=== PATIENT | male | born 1955 | race Caucasian/White ===

== ENCOUNTER → 2017-02-24 | Outpatient (CLI) | payer BC ==
[2016-04-26 05:55] VITALS: BP 129/79
[~2017-02-24] MED LIST: Aspirin PO; LOSA1TAB17 PO; MELO-150 PO; METO25TA2 PO; OLME1TAB PO; OXYC-323 PO; TAMS0.4C97 PO
--- NOTE | 2017-02-24 15:41 | RAD ---
Exam: PA and lateral chest radiograph History: Cough for 10 days, wheezing and productive cough. Comparison: 01/16/2016. Findings: Cardiomediastinal silhouette is within normal limits for size. Bilateral lung murrieta are free of focal infiltrate. No pleural effusion is seen. There is elevation of left hemidiaphragm. Impression: No acute cardiopulmonary process.
== END | disposition home or self-care (01) ==
LOC: DXRADRC 15:30
PROVIDERS: ATTEND Nurse Practitioner Family
DX: R05 Cough (principal); R06.2 Wheezing
CPT/HCPCS: 71020

== ENCOUNTER → 2017-11-06 | Outpatient (CLI) | payer BC ==
[2016-04-26 05:55] VITALS: BP 129/79
[~2017-11-06] MED LIST changes: -LOSA1TAB17 PO; +LOSA1TAB22 PO; -MELO-150 PO; +MELO15TA23 PO; -OLME1TAB PO; +OLME1TAB21 PO
[2017-11-06 11:17] LABS: BASO # 0.1 x10^3/uL (0.0-0.2); BASO % 1 % (0-3); EOS # 0.1 x10^3/uL (0.0-0.7); EOS % 2 % (0-3); HEMATOCRIT 49.7 % (39.0-53.0); HEMOGLOBIN 16.7 g/dL (13.0-17.5); LYMPH % 27 % (24-48); MEAN CORPUSCULAR HEMOGLOBIN 30 pg (25-35); MEAN CORPUSCULAR HGB CONC 34 g/dL (31-37); MEAN CORPUSCULAR VOLUME 90 fL (79-100); MONO # 0.5 x10^3/uL (0.0-1.1); MONO % 7 % (0-9); NEUT # 4.7 x10^3uL (1.8-7.7); NEUT % 64 % (31-73); PLATELET COUNT 313 x10^3/uL (140-400); RED BLOOD COUNT 5.53 x10^6/uL (4.30-5.70); RED CELL DISTRIBUTION WIDTH 14.2 % (11.5-14.5); WHITE BLOOD COUNT 7.4 x10^3/uL (4.0-11.0)
[2017-11-06 11:36] LABS: ALBUMIN 3.7 g/dL (3.4-5.0); CALCIUM 9.4 mg/dL (8.5-10.1); CREATININE 1.1 mg/dL (0.7-1.3); DIRECT BILIRUBIN 0.1 mg/dL (0.0-0.2); GFR 67.8; POTASSIUM 3.8 mmol/L (3.5-5.1); TOTAL BILIRUBIN 0.4 mg/dL (0.2-1.0); TOTAL PROTEIN 7.7 g/dL (6.4-8.2)
[2017-11-06 12:10] LABS: BILIRUBIN,URINE NEG (NEG); CLARITY,URINE CLEAR; COLOR,URINE YELLOW; GLUCOSE,URINE NEG (NEG)
[2017-11-06 12:11] LABS: NITRITE,URINE NEG (NEG); UROBILINOGEN,URINE 0.2 mg/dL (0.2 mg/dL)
[2017-11-06 12:15] LABS: BACTERIA,URINE FEW /HPF (0-FEW); RBC,URINE OCC /HPF (0-2); WBC,URINE OCC /HPF (0-4)
[2017-11-06 12:22] LABS: SQUAMOUS EPITHELIAL CELL,UR FEW /LPF
[2017-11-06 12:23] LABS: GRANULAR CASTS,URINE OCC /HPF; HYALINE CASTS, URINE FEW /HPF
[2017-11-06 14:57] LABS: THYROID STIM HORMONE (TSH) 1.411 uIU/mL (0.358-3.740)
--- NOTE | 2017-11-06 15:36 | RAD ---
Indication: Low back pain. Technique: Lumbosacral spine series contains 4 images. No comparison is available. Findings: There is mild levocurvature centered at L1. There is endplate spurring greatest at T12-L1 and L1-L2. Facet hypertrophy is greatest at L4-L5 and L5-S1. There is no fracture or dislocation. Vertebral body height is maintained. Impression: Degenerative changes in the lumbar spine.
== END | disposition home or self-care (01) ==
LOC: LAB 10:07
PROVIDERS: ATTEND Nurse Practitioner Family
DX: Z00.01 Encounter for general adult medical examination with abnormal findings (principal); M47.896 Other spondylosis, lumbar region; R35.1 Nocturia; I10 Essential (primary) hypertension; R79.89 Other specified abnormal findings of blood chemistry; Z72.89 Other problems related to lifestyle
CPT/HCPCS: 36415; 72100; 80048; 80061; 80076; 81001; 84436; 84443; 85025; G0103

== ENCOUNTER → 2017-11-13 | Outpatient (CLI) | payer BC ==
[2016-04-26 05:55] VITALS: BP 129/79
--- NOTE | 2017-11-13 10:25 | RAD ---
Indication: Lump in the posterior right neck. Sonographic interrogation of the area of lump in the posterior right neck was performed. Correlation is made with prior ultrasound from 04/13/2015. Previously noted mass in the posterior right neck persists measuring 4.1 x 6.4 x 1.9 cm compared with 2.9 x 5.6 x 1.9 cm. No internal vascularity is identified. A second mass is located just superior to this mass measuring 1.6 x 4.0 x 0.7 cm. No internal vascularity is seen. No fluid collection is identified. Impression: There are 2 masses identified in the posterior right neck, largest was previously seen and has increased in size. These could potentially represent lipomas. However, additional imaging with CT or MRI is recommended for better characterization.
== END | disposition home or self-care (01) ==
LOC: US 08:47
PROVIDERS: ATTEND Nurse Practitioner Family
DX: R22.1 Localized swelling, mass and lump, neck (principal); I10 Essential (primary) hypertension
CPT/HCPCS: 76536

== ENCOUNTER → 2019-04-30 | Outpatient (CLI) | payer BC ==
[2016-04-26 05:55] VITALS: BP 129/79
[~2019-04-30] MED LIST changes: -OXYC-323 PO; +OXYC1TAB15 PO
--- NOTE | 2019-04-30 16:19 | RAD ---
CHEST PA LATERAL History: Productive cough x2. COMPARISON: February 24, 2017. FINDINGS: Elevation of the left diaphragm and lung base appears similar to prior study. There is some markings in the left lung base which appears stable, compatible with atelectasis or fibrosis. No evidence of pneumothorax. No evidence of pleural effusion. No consolidation. Cardiomediastinal silhouette appears stable and not enlarged. IMPRESSION: Stable left lung base elevation with atelectasis or fibrosis. No new consolidation is seen. Electronically signed by: Alvaro Wakefield MD (04/30/2019 4:16 PM) [id number]
== END | disposition home or self-care (01) ==
LOC: PMG 10:19
PROVIDERS: ATTEND Physician Assistant
DX: R05 Cough (principal)
CPT/HCPCS: 71046

== ENCOUNTER → 2020-09-01 | Outpatient (CLI) | payer MEDICARE ==
[2016-04-26 05:55] VITALS: BP 129/79
--- NOTE | 2020-09-01 09:02 | RAD ---
Examination: Ultrasound right upper forearm HISTORY: History of right upper forearm lump COMPARISON: None available Findings/ impression: Ultrasound of the right upper forearm at the site of lump demonstrates a 1.4 x 1.9 x 0.6 cm heterogeneous echogenicity identified in the soft tissue of the forearm without significant vascular flow within. There is mild soft tissue edema identified about the mass. Recommend MRI without and with contrast for further evaluation. Electronically signed by: Hima Langford MD (09/01/2020 8:59 AM) [id number]
== END ==
LOC: US 08:28
PROVIDERS: ATTEND Physician Assistant
DX: R22.31 Localized swelling, mass and lump, right upper limb (principal)
CPT/HCPCS: 76881

== ENCOUNTER → 2020-09-22 | Outpatient (CLI) | payer MEDICARE ==
[2016-04-26 05:55] VITALS: BP 129/79
== END ==
LOC: LAB 08:22
PROVIDERS: ATTEND Nurse Anesthetist, Certified Registered
DX: Z01.812 Encounter for preprocedural laboratory examination (principal); Z20.828 Contact with and (suspected) exposure to other viral communicable diseases
CPT/HCPCS: U0003

== ENCOUNTER → 2020-09-26 | Day surgery (SDC) | payer MEDICARE ==
[~2020-09-26] MED LIST changes: +BUPIVACAINE-EPI 0.25%-1:200000 MPF 30 ML VIAL. IJ ONE; +BUPIVACAINE-EPI 0.25%-1:200000 MPF 30 ML VIAL. ONE
--- NOTE | 2020-09-26 12:44 | PDOC4 ---
Operative Report DATE 09/26/2020 at 1242 Preop Diagnosis Right forearm mass Post-op Diagnosis Same Operation Performed Patient is a 65-year-old male complains of a mass on his right forearm procedure of excision was explained to the patient detail was benefits were also discussed including bleeding infection alternatives to this procedure also discussed with the patient who seemed to understand and gave both verbal and written consent to have the procedure performed. Patient was taken to the minors room placed in the supine position the arm was prepped and draped usual sterile fashion using ChloraPrep. Area around the mass was injected with quarter percent Marcaine with epinephrine incision was made with 15 blade scalpel through the skin this was carried down through the subcutaneous tissue using electrocautery right hemostasis mass was sharply excised with Metzenbaum scissors and sent for pathology mass size was approximately 1 x 2 cm. The wound was then closed in a single layer 4-0 subcuticular Monocryl Mastisol Steri-Strips and island dressing were applied. Patient was discharged in stable condition all sponge instrument needle counts listed as correct estimated blood loss 5 mL Surgeon Juan Jose ANESTHESIA PROPOSED: LOCAL Blood Loss 5 mL Specimen Right forearm mass Complications None EFREN LAMAS MD Sep 26, 2020 12:44
--- NOTE | 2020-09-26 12:46 | DISCH ---
DISCHARGE INSTRUCTIONS-DC Condition on Discharge Condition on Discharge: Stable Activity after Discharge Activity Instructions for Disc: Resume previous activity Diet after Discharge Diet after Discharge: Regular Wound/Incision Care Other wound/incision instructi: May shower in 24 hours Contacting the after DC Call your doctor for: If your condition worsens Follow-Up Follow up with: Dr. Lamas in 2-week EFREN LAMAS MD Sep 26, 2020 12:46
[2020-09-26 12:59] VITALS: BP 130/66
--- NOTE | 2020-09-29 22:06 | PATHOLOGY ---
[facility] Accession Number: [id number] . 01 Material submitted: . forearm - RIGHT FOREARM MASS. Modifiers: right . 02 Diagnosis: "Right forearm mass", excision: - Fibroadipose connective tissue with localized fat necrosis showing adjacent acute and chronic inflammation, coagulative necrosis, fibroblastic proliferation and reactive changes. LBQ 09/29/2020 1533 Local . 02 Comment: Clinical correlation is recommended. (CLW/db; 09/29/2020) . 02 Electronically signed: . Dary Cruz MD, Pathologist NPI- [id number] . 01 Gross description: . Received in formalin labeled "Tereso Khan, right forearm mass" is a henning-white soft tissue mass measuring 1.7 x 1.5 x 0.8 cm. The external surface is inked black and the specimen is sectioned to reveal a henning-white cystic cut surface. The specimen is submitted entirely in cassette A1. ([facility]; 09/28/2020) [facility] 09/28/2020 1606 Local . 02 Pathologist provided ICD-10: R22.31 . 02 CPT . 052409 Specimen Comment: A courtesy copy of this report has been sent to [phone], [phone] Specimen Comment: [id number] Specimen Comment: Report sent to / DR BAIG Performed at: 01 [facility] [address], [place] [id number] MD Hilton Smith MD Phone: [phone] Performed at: 02 [facility] [address], [place] [id number] MD James Haile MD Phone: [phone]
== END | disposition home or self-care (01) ==
LOC: SURG 10:59
PROVIDERS: ATTEND Surgery
DX: R22.31 Localized swelling, mass and lump, right upper limb (principal); M79.89 Other specified soft tissue disorders; I20.0 Unstable angina; I10 Essential (primary) hypertension; E66.01 Morbid (severe) obesity due to excess calories; M47.896 Other spondylosis, lumbar region; Z82.3 Family history of stroke; Z79.899 Other long term (current) drug therapy; Z82.49 Family history of ischemic heart disease and other diseases of the circulatory system; Z96.643 Presence of artificial hip joint, bilateral
CPT/HCPCS: 25075; J3490

== ENCOUNTER 2020-11-23 16:57 | Emergency (ER) | payer MEDICARE ==
[~2020-11-23] VITALS: Ht 177.8 cm; Wt 159.0 kg
[~2020-11-23 16:57] MED LIST changes: -BUPIVACAINE-EPI 0.25%-1:200000 MPF 30 ML VIAL. IJ ONE; -BUPIVACAINE-EPI 0.25%-1:200000 MPF 30 ML VIAL. ONE
[2020-11-23 17:18] VITALS: BP 168/89
[2020-11-23] MEDS ORDERED: AZITHROMYCIN 250 MG TABLET. PO ONE (18:30)
[2020-11-23] MEDS ORDERED: AZIT250T6 PO (18:50)
--- NOTE | 2020-11-23 18:50 | PHYS DOC ---
Past History Past Medical History: Hypertension Past Surgical History: Hip Replacement, Other Additional Past Surgical Histo: HAND, ELBOW Alcohol Use: Occasionally Drug Use: None Adult General Chief Complaint Chief Complaint: COUGH HPI HPI Patient is a 65-year-old male who presents stating "I was sent here for an x-ray ". States he is otherwise healthy male with hypertension only, reports having nonspecific URI-like symptoms such as facial congestion, rhinorrhea and postnasal drip for approximately 8 days. States that he went to local urgent care with his earlier today and they both tested positive for COVID-19. He was told that he had concerning breath sounds and was advised to come to our ER for chest x-ray to be performed. Patient denies any fever. States despite his symptoms, he traveled to [place] and spent [place] with his daughter and daughter's family, reports he drove home yesterday. Denies any fever, headache, syncope, lightheadedness or dizziness, chest pain, shortness of breath, productive cough, abdominal pain, vomiting, urinary symptoms or neurologic deficits. Just admits that he has had increased nasal drainage and development of looser stools than usual today which concerned him prompting urgent care visit. Review of Systems Review of Systems Fourteen body systems of review of systems have been reviewed. See HPI for pertinent positives and negative responses, other moreira all other systems are negative, non-pertinent or non-contributory Current Medications Current Medications Current Medications Medications (Trade) Dose Ordered Sig/Oksana Start Time Stop Time Status Last Admin Dose Admin Azithromycin (Zithromax) 500 mg 1X ONCE 11/23/20 18:30 11/23/20 18:31 DC Allergies Allergies Allergies Coded Allergies Type Severity Reaction Last Updated Verified No Known Drug Allergies 11/10/14 No Physical Exam Physical Exam Constitutional: Well developed, well nourished, no acute distress, non-toxic appearance. HENT: Normocephalic, atraumatic, bilateral external ears normal, oropharynx moist, no oral exudates, nose normal. Eyes: PERRLA, EOMI, conjunctiva normal, no discharge. Neck: Normal range of motion, no tenderness, supple, no stridor. Cardiovascular: Heart rate regular, sinus rhythm, no murmurs rubs or gallops Lungs & Thorax: No respiratory distress or accessory muscle usage, decreased breath sounds bilaterally due to body habitus without any obvious crackles, rales or rhonchi Abdomen: Bowel sounds normal, soft, no tenderness, no masses, no pulsatile masses. Nonsurgical abdomen, no peritoneal signs Skin: Warm, dry, no erythema, no rash. Back: No tenderness, no CVA tenderness. Extremities: No tenderness, no cyanosis, no clubbing, ROM intact, no edema. Neurologic: Alert and oriented X 3, grossly normal motor & sensory function, no focal deficits noted. Psychologic: Affect normal, judgement normal, mood normal. Current Patient Data Vital Signs Vital Signs Date Time Temp Pulse Resp B/P (MAP) Pulse Ox O2 Delivery O2 Flow Rate FiO2 11/23/20 17:18 99.6 97 18 168/89 (115) 91 Room Air EKG EKG [] Radiology/Procedures Radiology/Procedures [] Heart Score HEART Score for Chest Pain: HEART Score for Chest Pain Response (Comments) Value History Slighlty/Non-Suspicious 0 Age > 65 2 Risk Factors 1 or 2 Risk Factors 1 Total 3 Risk Factors: Risk Factors: DM, Current or recent (<one month) smoker, HTN, HLP, family history of CAD, obesity. Risk Scores: Risk Factors: DM, Current or recent (<one month) smoker, HTN, HLP, family history of CAD, obesity. Course & Med Decision Making Course & Med Decision Making I discussed most likely diagnosis of symptomatic COVID-19 infection. Patient's physical exam was grossly nonconcerning. Patient hemodynamically stable, patient did not desaturate with ambulation despite lower than likely usual pulse oximetry readings. I discussed utility of further diagnostic work-up in ER but joint decision to defer given absence of any concerning physical exam abnormalities and fact that management would not change. I did offer patient azithromycin for his current infection given URI-like symptoms and known COVID- 19 infection, he accepted. He took 500 mg tablet prior to discharge and tolerated this well. I discussed at length need to self quarantine and provide continued supportive care for himself at home, I advised Tylenol and/or ibuprofen for aches and pains in addition to need for taking daily temperature and pulse oximetry readings. I advised him to call his primary care physician tomorrow to discuss next steps in care and when he can be safely seen for repeat examination. I discussed that some primary care physicians like being notified of Covid positive patients so they can check on them daily via telehealth visits. Strict return precautions were also discussed at length with good under standing by patient. Patient voiced understanding and agreement with the plan. Patient knows to come back for repeat evaluation if concerning signs or symptoms present prior to outpatient follow-up. Hemodynamically stable, ambulatory and well-appearing at time of disposition. Dragon Disclaimer Dragon Disclaimer This electronic medical record was generated, in whole or in part, using a voice recognition dictation system. Departure Departure: Impression: Primary Impression: COVID-19 Disposition: 01 DC HOME SELF CARE/HOMELESS Condition: STABLE Referrals: MALATHI BAIG (PCP) Additional Instructions: You were seen for known COVID-19 infection. Your physical exam was reassuring. Your breath sounds were nonconcerning, joint decision was made to defer chest x-ray imaging given that you were well-appearing and hemodynamically stable. Joint decision was made to start azithromycin antibiotic. Continue to self quarantine at home. Alternate Tylenol and ibuprofen as needed for body aches and pain. You should make sure to drink plenty of fluids and get plenty of rest. As discussed, please continue to check your temperature daily and notify your primary care physician if you exceed temperatures greater than 100.4. In addition, I would advise you to hop picker a finger pulse oximetry ureter and use this daily. Please keep a log of these readings and contact your primary care physician and/or come to your local ER department for repeat evaluation if any readings drop less than 90%. You should return to the ED if you develop worsening cough, shortness of breath, chest pain, or any other new or concerning symptoms. It was a pleasure to take care of you today and I wish you a speedy recovery Scripts Azithromycin (AZITHROMYCIN TABLET) 250 Mg Tablet 250 MG PO DAILY for ANTI-BIOTIC for 4 Days, #4 TAB 0 Refills Prov: MOHIT BEASLEY DO 11/23/20 MOHIT BEASLEY DO Nov 23, 2020 18:50
== END 2020-11-23 19:00 | disposition home or self-care (01) ==
LOC: ER 16:57
DX: U07.1 COVID-19 (principal); R09.81 Nasal congestion; J34.89 Other specified disorders of nose and nasal sinuses; I10 Essential (primary) hypertension; Z98.890 Other specified postprocedural states
CPT/HCPCS: 99283

== ENCOUNTER 2020-11-25 20:13 | Inpatient (IN) | payer MEDICARE ==
[~2020-11-25] VITALS: Ht 177.8 cm; Wt 158.6 kg
[~2020-11-25 20:13] MED LIST changes: +AZIT250T6 PO
[2020-11-25] MEDS ORDERED: IV NORMAL SALINE 1,000ML 1,000 ML IV SCH (20:45)
--- NOTE | 2020-11-25 20:50 | PHYS DOC ---
Past History Past Medical History: Hypertension Past Surgical History: Hip Replacement, Other Additional Past Surgical Histo: HAND, ELBOW Alcohol Use: Occasionally Drug Use: None Adult General Chief Complaint Chief Complaint: FEVER HPI HPI Patient is a 65-year-old male presenting for COVID-19 infection. Patient was seen at our facility 2 days ago by myself after visiting local urgent care and testing positive for COVID-19 infection. He was sent for evaluation at our ER at that time, was hemodynamically stable and besides URI like symptoms had no other major complaints. Joint decision was made for discharge home with azithromycin prescription and strict return precautions. Patient reports since discharge home, he and his who is also positive have been providing supportive care to each other. Patient reports he has been having worsened URI- like symptoms such as rhinorrhea and congestion with new onset dizziness with position changes, nausea, GI upset and a few episodes of diarrhea that were nonbloody in nature. Patient reports being febrile earlier today with a temperature T-max 102.0 that resolved with Tylenol; however, patient reports the fever came back later in the afternoon which concerned him. Recurrence of fever and progressing symptoms prompted him to come back to our ER for repeat evaluation Review of Systems Review of Systems Fourteen body systems of review of systems have been reviewed. See HPI for pertinent positives and negative responses, other moreira all other systems are negative, non-pertinent or non-contributory Allergies Allergies Allergies Coded Allergies Type Severity Reaction Last Updated Verified No Known Drug Allergies 11/10/14 No Physical Exam Physical Exam Constitutional: Well developed, well nourished, no acute distress, non-toxic appearance, morbidly obese and ambulatory, does appear unwell HENT: Normocephalic, atraumatic, bilateral external ears normal, oropharynx dry, no oral exudates, nose normal. Eyes: PERRLA, EOMI, conjunctiva normal, no discharge. Neck: Normal range of motion, no tenderness, supple, no stridor. Cardiovascular: Heart rate regular, sinus rhythm, no murmurs rubs or gallops Lungs & Thorax: No obvious respiratory distress or accessory muscle use, increased work of breathing in tachypneic with O2 saturations upper 80s on room air, diminished breath sounds bilaterally due to body habitus without any obvious rales or rhonchi Abdomen: Bowel sounds normal, protuberant and soft, no tenderness, no masses, no pulsatile masses. Nonsurgical abdomen, no peritoneal signs Skin: Warm, dry, no erythema, no rash. Back: No tenderness, no CVA tenderness. Extremities: No tenderness, no cyanosis, no clubbing, ROM intact, no edema. Neurologic: Alert and oriented X 3, grossly normal motor & sensory function, no focal deficits noted. Psychologic: Affect normal, judgement normal, mood normal. Current Patient Data Vital Signs Vital Signs Date Time Temp Pulse Resp B/P (MAP) Pulse Ox O2 Delivery O2 Flow Rate FiO2 11/25/20 20:30 102.1 74 24 143/77 (99) 89 Room Air Lab Results Laboratory Tests Test 11/25/20 20:50 White Blood Count 5.1 x10^3/uL Red Blood Count 5.17 x10^6/uL Hemoglobin 15.4 g/dL Hematocrit 46.6 % Mean Corpuscular Volume 90 fL Mean Corpuscular Hemoglobin 30 pg Mean Corpuscular Hemoglobin Concent 33 g/dL Red Cell Distribution Width 14.3 % Platelet Count 184 x10^3/uL Neutrophils (%) (Auto) 68 % Lymphocytes (%) (Auto) 23 % Monocytes (%) (Auto) 8 % Eosinophils (%) (Auto) 1 % Basophils (%) (Auto) 1 % Neutrophils # (Auto) 3.5 x10^3uL Lymphocytes # (Auto) 1.2 x10^3/uL Monocytes # (Auto) 0.4 x10^3/uL Eosinophils # (Auto) 0.0 x10^3/uL Basophils # (Auto) 0.0 x10^3/uL Sodium Level 143 mmol/L Potassium Level 3.5 mmol/L Chloride Level 103 mmol/L Carbon Dioxide Level 32 mmol/L Anion Gap 8 Blood Urea Nitrogen 17 mg/dL Creatinine 1.2 mg/dL Estimated GFR (Cockcroft-Gault) 60.8 BUN/Creatinine Ratio 14 Glucose Level 131 mg/dL Lactic Acid Level 1.5 mmol/L Calcium Level 8.0 mg/dL Total Bilirubin 0.2 mg/dL Aspartate Amino Transf (AST/SGOT) 31 U/L Alanine Aminotransferase (ALT/SGPT) 49 U/L Alkaline Phosphatase 57 U/L Creatine Kinase 94 U/L Troponin I Quantitative < 0.017 ng/mL RB-Bax-R-Type Natriuretic Peptide 28 pg/mL Total Protein 6.9 g/dL Albumin 3.0 g/dL Albumin/Globulin Ratio 0.8 Current Medications Medications (Trade) Dose Ordered Sig/Oksana Route PRN Reason Start Time Stop Time Status Last Admin Dose Admin Sodium Chloride 1,000 ml @ 100 mls/hr Q10H IV 11/25/20 20:45 11/26/20 06:44 Ibuprofen (Motrin) 600 mg 1X ONCE PO 11/25/20 22:00 11/25/20 22:01 Ibuprofen (Motrin) 600 mg STK-MED ONCE PO 11/25/20 21:37 11/25/20 21:38 DC EKG EKG EKG ordered and interpreted by myself at 2116 hrs. as sinus rhythm at 89 bpm, unremarkable intervals, no axis deviation, no acute ischemic findings, no STEMI Radiology/Procedures Radiology/Procedures EXAM: Chest, single view. HISTORY: Covid 19. COMPARISON: 04/30/2019 FINDINGS: A frontal view of the chest obtained. There is diffuse central predominant interstitial infiltrate. There are decreased lung volumes with associated vascular crowding and atelectasis. No pleural effusion or pneumothorax is seen. The heart is normal in size for portable technique. IMPRESSION: Diffuse central predominant interstitial infiltrate. Electronically signed by: Christiana Quezada MD (11/25/2020 9:26 PM) [facility] Heart Score HEART Score for Chest Pain: HEART Score for Chest Pain Response (Comments) Value History Slighlty/Non-Suspicious 0 ECG Normal 0 Age >45 - < 65 1 Risk Factors 1 or 2 Risk Factors 1 Troponin < Normal Limit 0 Total 2 Risk Factors: Risk Factors: DM, Current or recent (<one month) smoker, HTN, HLP, family history of CAD, obesity. Risk Scores: Risk Factors: DM, Current or recent (<one month) smoker, HTN, HLP, family history of CAD, obesity. Course & Med Decision Making Course & Med Decision Making Pertinent Labs and Imaging studies reviewed. (See chart for details) Patient febrile and hypoxic on room air. Patient is known COVID-19 positive after getting tested with rapid test at [facility] urgent care November 23, 2020. Patient has been taking azithromycin and providing supportive care to himself at home but has failed outpatient treatment. He will need hospital admission for further medical management for current infection Case discussed with on-call hospitalist, Dr. Reeder, who agreed need for admission and accepted patient under his care at [facility] Patient was updated on plan of care and was amenable for hospital admission. All questions and concerns addressed prior to ER transport to [facility] for admission Erick Disclaimer Dragon Disclaimer This electronic medical record was generated, in whole or in part, using a voice recognition dictation system. Departure Departure: Impression: Primary Impression: Acute hypoxemic respiratory failure due to COVID-19 Additional Impression: Fever due to COVID-19 Disposition: 09 ADMITTED INPT THIS HOSP Admitting Physician: Sarah Reeder Condition: STABLE Referrals: MALATHI BAIG (PCP) Problem Qualifiers MOHIT BEASLEY DO Nov 25, 2020 20:50
[2020-11-25 21:23] LABS: BASO % 1 % (0-3); EOS % 1 % (0-3); HEMATOCRIT 46.6 % (39.0-53.0); HEMOGLOBIN 15.4 g/dL (13.0-17.5); LYMPH # 1.2 x10^3/uL (1.0-4.8); LYMPH % 23 % (24-48); MEAN CORPUSCULAR HEMOGLOBIN 30 pg (25-35); MEAN CORPUSCULAR HGB CONC 33 g/dL (31-37); MEAN CORPUSCULAR VOLUME 90 fL (79-100); MONO # 0.4 x10^3/uL (0.0-1.1); MONO % 8 % (0-9); NEUT # 3.5 x10^3uL (1.8-7.7); NEUT % 68 % (31-73); PLATELET COUNT 184 x10^3/uL (140-400); RED BLOOD COUNT 5.17 x10^6/uL (4.30-5.70); RED CELL DISTRIBUTION WIDTH 14.3 % (11.5-14.5); WHITE BLOOD COUNT 5.1 x10^3/uL (4.0-11.0)
--- NOTE | 2020-11-25 21:27 | EKG ---
[address] [address] Test Date: 2020-11-25 Test Time: 21:08:00 Pat Name: HUMPHREY ZULETA Department: Room: Gender: M [employer]: : 1955 Requested By: MOIHT BEASLEY Order Number: [id number] Reading MD: Abner Lynch Measurements Intervals [place] Rate: 89 P: 31 [place]: 152 QRS: 33 QRSD: 88 T: 30 QT: 346 QTc: 422 Interpretive Statements SINUS RHYTHM NORMAL ECG Electronically Signed On 11-28-2020 13:54:20 PROGRAM DIRECTOR/TRAFFIC DIRECTOR by Abner Lynch
--- NOTE | 2020-11-25 21:28 | RAD ---
EXAM: Chest, single view. HISTORY: Covid 19. COMPARISON: 04/30/2019 FINDINGS: A frontal view of the chest obtained. There is diffuse central predominant interstitial inf iltrate. There are decreased lung volumes with associated vascular crowding and atelectasis. No pleur al effusion or pneumothorax is seen. The heart is normal in size for portable technique. IMPRESSION: Diffuse central predominant interstitial infiltrate. Electronically signed by: Christiana Quezada MD (11/25/2020 9:26 PM) [facility]
[2020-11-25 21:30] LABS: CREATININE 1.2 mg/dL (0.7-1.3); GFR 60.8; POTASSIUM 3.5 mmol/L (3.5-5.1)
[2020-11-25] MEDS ORDERED: IBUPROFEN 600 MG TABLET. PO ONE ×2 (21:37→22:00)
[2020-11-25 21:45] LABS: ALBUMIN/GLOBULIN RATIO 0.8 (1.0-1.7); TOTAL BILIRUBIN 0.2 mg/dL (0.2-1.0); TOTAL PROTEIN 6.9 g/dL (6.4-8.2)
[2020-11-25] MEDS ORDERED: NITROGLYCERIN SUBLINGUAL 0.4 MG BOTTLE OF 25. SL PRN (22:00)
[2020-11-25 22:29] LABS: BACTERIA,URINE 0 /HPF (0-FEW); BILIRUBIN,URINE NEG (NEG); CLARITY,URINE CLEAR; COLOR,URINE YELLOW; GLUCOSE,URINE NEG (NEG); NITRITE,URINE NEG (NEG); RBC,URINE RARE /HPF (0-2); UROBILINOGEN,URINE 0.2 mg/dL (0.2 mg/dL); WBC,URINE RARE /HPF (0-4)
[2020-11-26 00:18] VITALS: BP 152/64
--- NOTE | 2020-11-26 01:51 | NUR ---
The patient, HUMPHREY ZULETA, 65 y/o, M admitted by GUILLAUME FERRARO MD, to room 120, was given written information regarding hospital policies, unit procedures and contact persons. Valuables were checked and left with the patient. Medical history and medications were reviewed. Physical needs assessment. Patient oriented to room. Current conditions and pain level discussed. Will continue to monitor.
[2020-11-26] MEDS ORDERED: HYDR25TA10 PO (02:07)
[2020-11-26] MEDS ORDERED: LOSA100T14 PO (02:07)
[2020-11-26 06:16] VITALS: BP 179/72
[2020-11-26] MEDS: ACETAMINOPHEN 325 MG TABLET PO PRN ×2 (07:09→20:25)
[2020-11-26 11:24] VITALS: BP 153/65
[2020-11-26 14:10] VITALS: BP 92/68
--- NOTE | 2020-11-26 14:23 | HP ---
ADMIT DATE: 11/25/2020 HISTORY OF PRESENT ILLNESS: The patient is a 65-year-old male patient who came to the Emergency Room with a complaint that of having cough, worsening upper respiratory infection like symptoms such as rhinorrhea, congestion with new onset dizziness with position change, nausea, GI upset and a few episodes of diarrhea that were nonbloody in nature. He also reports being febrile earlier today with a temperature maximum of 102 that resolved with Tylenol. However, the patient reports that the fever came back later in the afternoon, which concerned him. Recurrence of fever and progressing symptoms prompted him to come back to [facility] Emergency Room. He apparently was seen in same Emergency Room 2 days ago after visiting local urgent care and testing positive for COVID-19 infection. At that time, he apparently was afebrile, hemodynamically stable and was sent home with azithromycin prescription and strict return precautions. Apparently, he and his are both positive and has been providing supportive care to each other. When he arrived to the Emergency Room, the patient was extensively investigated and apparently has had chest x-ray, which showed the patient has diffuse central predominance interstitial infiltrate. His lab work showed a white cell count of 5000. His platelets were normal at 184,000. His chemistry was normal. Urinalysis was unremarkable and the patient was admitted with: 1. COVID-19 pneumonia. 2. Acute hypoxic respiratory failure. PAST MEDICAL HISTORY: Significant for hypertension. PAST SURGICAL HISTORY: Significant for bilateral total hip arthroplasty, biceps tendon rupture and repair, benign tumor removed from the outer aspect of the right elbow. ALLERGIES: He has no known drug allergies. MEDICATIONS: He is currently on losartan potassium 100 mg once a day, meloxicam 15 mg daily, hydrochlorothiazide 25 mg daily. FAMILY HISTORY: He has one brother and one sister, both older and healthy. His father at the age of 85 because of dementia, myocardial infarction. Mother at the age of 63 because of stroke. SOCIAL HISTORY: He is , has 2 sons and 1 daughter. 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 REVIEW OF SYSTEMS: The patient denied any blurring of vision, cataract, glaucoma or macular degeneration. Denied any earache, tinnitus or sensorineural deafness. Denied any nosebleeds, did complain of rhinorrhea, some nausea and also diarrhea, but denied any hematemesis, melena or hematochezia. Denied any dysuria, frequency or hematuria. Denied any chest pain, shortness of breath, orthopnea, paroxysmal nocturnal dyspnea. PHYSICAL EXAMINATION: GENERAL: On arrival to the Emergency Room, the patient was somewhat tachypneic, febrile. There is no pallor, jaundice, cyanosis or thyromegaly. No jugular venous distention. No limb edema. VITAL SIGNS: His heart rate was 74, blood pressure was 143/77, temperature was 102.3, respiratory rate was 24, and oxygen saturation was only 89%. HEAD, EYES, EARS, NOSE AND THROAT: Normocephalic, atraumatic. NECK: Supple. HEART: Normal first and second heart sounds. No gallop or murmur. CHEST: Shows central trachea, equal bilateral chest expansion, air entry, vesicular sounds. I could not really appreciate any crepitation or rhonchi. ABDOMEN: Distended, soft, nontender. No guarding or rigidity. No organomegaly. All hernial orifice intact. Bowel sounds normal. NEUROLOGIC: He was grossly intact. LABORATORY DATA: Showed a white cell count of 5100, hemoglobin 15, hematocrit 46, MCV 90 and platelet count of 184,000. Serum sodium was 143, potassium 3.5, chloride 103, bicarbonate 32, anion gap of 8, BUN 17, creatinine 1.2, estimated GFR was 60 mL per minute. His glucose was 131, lactic acid was 1.5, calcium was 8. Total bilirubin, AST, ALT, alkaline phosphatase were normal. Total protein was 6.9, albumin 3. Urinalysis was essentially unremarkable. His chest x-ray showed that he has diffuse central predominance, additional infiltrate. There are decreased lung volumes with associated vascular crowding and atelectasis, no pleural effusion or pneumothorax. The heart is normal in size for portable technique. ASSESSMENT AND PLAN: 1. The patient was admitted with COVID-19 pneumonia. 2. Acute hypoxic respiratory failure. 3. Hypertension. The patient was treated. We will continue with Zithromax as well as Rocephin and dexamethasone. I will resume all his home medications. GUILLAUME FERRARO MD DR: ANJALI/winnie JOB#: [id number] / [id number]
[2020-11-26] MEDS: LOSARTAN 50 MG TABLET. PO SCH (14:29)
[2020-11-26] MEDS: AZITHROMYCIN 250 MG TABLET. PO SCH (14:29)
[2020-11-26] MEDS: hydroCHLOROthiazide 25 MG TABLET PO SCH (14:29)
[2020-11-26 14:30] VITALS: BP 158/65
[2020-11-26] MEDS: DEXAMETHASONE SOD PHOS 10 MG/ML VIAL. IV SCH (14:30)
[2020-11-26 20:06] VITALS: BP 132/67
[2020-11-26] MEDS: ENOXAPARIN ** NOTE DOSE ** SYRINGE SQ SCH (20:25)
[2020-11-27 05:39] VITALS: BP 122/62
[2020-11-27 06:32] LABS: HEMATOCRIT 48.2 % (39.0-53.0); HEMOGLOBIN 15.9 g/dL (13.0-17.5); RED BLOOD COUNT 5.31 x10^6/uL (4.30-5.70); RED CELL DISTRIBUTION WIDTH 14.1 % (11.5-14.5)
[2020-11-27 06:54] LABS: ALBUMIN 2.8 g/dL (3.4-5.0); ALBUMIN/GLOBULIN RATIO 0.7 (1.0-1.7); CALCIUM 8.4 mg/dL (8.5-10.1); CREATININE 0.8 mg/dL (0.7-1.3); POTASSIUM 3.7 mmol/L (3.5-5.1); TOTAL BILIRUBIN 0.2 mg/dL (0.2-1.0); TOTAL PROTEIN 7.1 g/dL (6.4-8.2)
[2020-11-27] MEDS: ENOXAPARIN ** NOTE DOSE ** SYRINGE SQ SCH ×2 (08:17→20:27)
[2020-11-27] MEDS: hydroCHLOROthiazide 25 MG TABLET PO SCH (08:18)
[2020-11-27] MEDS: DEXAMETHASONE SOD PHOS 10 MG/ML VIAL. IV SCH (08:18)
[2020-11-27] MEDS: LOSARTAN 50 MG TABLET. PO SCH (08:18)
[2020-11-27] MEDS: AZITHROMYCIN 250 MG TABLET. PO SCH (08:18)
[2020-11-27] MEDS ORDERED: BENZOCAINE/MENTHOL LOZNGE 18'S BOX. PO PRN (09:45)
[2020-11-27 11:21] VITALS: BP 136/72
[2020-11-27 14:21] VITALS: BP 143/72
[2020-11-27 19:15] VITALS: BP 124/75
--- NOTE | 2020-11-27 19:39 | PN ---
DATE: 11/27/2020 SUBJECTIVE: The patient is resting, slightly propped up in bed, in no apparent distress. He continued to have some cough with scanty whitish sputum and some shortness of breath, but denied any chills, rigors or fever. PHYSICAL EXAMINATION: GENERAL: When I examined him, he looked well and was clearly in no apparent respiratory distress. No pallor, jaundice, cyanosis or thyromegaly. No jugular venous distention. No lower limb edema. VITAL SIGNS: His heart rate was 80, blood pressure was 143/72, temperature was 98.1, respiratory rate was 20, and oxygen saturation was 93% on 2 liters of oxygen. He desaturates quickly without any on room air and on exertion. HEAD, EYES, EARS, NOSE AND THROAT: Showed normocephalic, atraumatic. NECK: Supple. HEART: Showed normal first and second heart sounds. No gallop or murmur. CHEST: Clear to auscultation. No crepitation or rhonchi. ABDOMEN: Distended, soft, nontender. NEUROLOGIC: He is awake, alert, responding appropriately. All cranial nerves are intact. He moves extremities without difficulty. He ambulates without assistance or assistive devices. His intake and output were incompletely recorded. LABORATORY DATA: His lab work this morning showed a white cell count of 4000; hemoglobin 15.9; hematocrit 48; MCV 91; and platelet count of 184,000. Serum sodium 140, potassium 3.7, chloride 103, bicarbonate 30, anion gap of 7, BUN 14, creatinine 0.8. Estimated GFR was 97 mL per minute. His glucose 128, calcium was 8.4. Total bilirubin, AST, ALT, alkaline phosphatase were normal. Total protein 7.1, albumin was 2.8. D-dimer was high at 1.88. ASSESSMENT: 1. COVID-19 pneumonia. 2. Acute hypoxic respiratory failure. 3. Hypertension. PLAN: To continue with IV dexamethasone. Continue with IV Rocephin and Zithromax. Continue with all his other medications. We will evaluate him again tomorrow and if he remains stable, he can be discharged home to continue treatment as an outpatient and we will do also a 6-minute walk for home oxygen. GUILLAUME FERRARO MD DR: ANJALI/winnie JOB#: [id number] / [id number]
[2020-11-27] MEDS: LACTOBACILLUS RHAMNOSUS GG 1 CAPSULE. PO SCH (20:26)
[2020-11-27] MEDS: ACETAMINOPHEN 325 MG TABLET PO PRN (20:27)
[2020-11-27 23:20] VITALS: BP 129/64
[2020-11-28 05:41] VITALS: BP 141/75
[2020-11-28 06:24] LABS: HEMATOCRIT 46.4 % (39.0-53.0); HEMOGLOBIN 15.3 g/dL (13.0-17.5); RED BLOOD COUNT 5.19 x10^6/uL (4.30-5.70); RED CELL DISTRIBUTION WIDTH 13.9 % (11.5-14.5); WHITE BLOOD COUNT 6.2 x10^3/uL (4.0-11.0)
[2020-11-28 06:45] LABS: ALBUMIN 2.8 g/dL (3.4-5.0); ALBUMIN/GLOBULIN RATIO 0.7 (1.0-1.7); CALCIUM 8.4 mg/dL (8.5-10.1); CREATININE 0.8 mg/dL (0.7-1.3); POTASSIUM 3.3 mmol/L (3.5-5.1); TOTAL BILIRUBIN 0.3 mg/dL (0.2-1.0); TOTAL PROTEIN 6.9 g/dL (6.4-8.2)
[2020-11-28] MEDS: ENOXAPARIN ** NOTE DOSE ** SYRINGE SQ SCH (08:34)
[2020-11-28] MEDS: DEXAMETHASONE SOD PHOS 10 MG/ML VIAL. IV SCH (08:34)
[2020-11-28] MEDS: AZITHROMYCIN 250 MG TABLET. PO SCH (08:34)
[2020-11-28] MEDS: LACTOBACILLUS RHAMNOSUS GG 1 CAPSULE. PO SCH (08:35)
[2020-11-28] MEDS: hydroCHLOROthiazide 25 MG TABLET PO SCH (08:35)
[2020-11-28] MEDS: LOSARTAN 50 MG TABLET. PO SCH (08:35)
[2020-11-28] MEDS: ACETAMINOPHEN 325 MG TABLET PO PRN (08:48)
[2020-11-28 10:48] VITALS: BP 115/65
--- NOTE | 2020-11-28 11:22 | NUR ---
PATIENT IS IN A BED THIS AM UPON ASSESSMENT, C/O MILD HEADACHE, TYLENOL GIVEN ORDERED. PATIENT IS ON 2L OF O2 VIA NC WITH SAT AT 94%, O2 TITRATED DOWN TO 1L, SAT OF O2 RECHECKED, PATIENT IS AT 92%. PATIENT STATED HE USUALLY HAS A DRY COUGH IN THE MORNING.
[2020-11-28 15:05] VITALS: BP 111/67
[2020-11-28] MEDS ORDERED: AZIT250T PO (16:49)
[2020-11-28] MEDS ORDERED: DEXA4TAB PO (16:49)
[2020-11-28] MEDS ORDERED: CEFD300C PO (16:49)
--- NOTE | 2020-11-28 17:17 | NUR ---
PATIENT IS DISCHARGED HOME WITH O2 SUPPLIES. DISCHARGE INSTRUCTIONS REVIEWED, PATIENT VERBALIZED UNDERSTANDING. PATIENT LEFT ROOM VIA AMBULATION ACCOMPANIED BY THIS RN. PATIENT TAKEN HOME BY HIS VIA PERSONAL VEHICLE.
--- NOTE | 2020-11-28 18:03 | DS ---
DATE OF DISCHARGE: 11/28/2020 HOSPITAL COURSE: The patient is a 65-year-old male patient who was admitted with a complaint of having cough, worsening upper respiratory infection like symptoms such as rhinorrhea, congestion with new onset dizziness with position change, nausea, GI upset and few episodes of diarrhea that were nonbloody. He also reports being febrile earlier on the day of admission. He actually was seen in the Emergency Room two days prior to admission after visiting local urgent care and testing positive for COVID-19 infection. At that time, he apparently was afebrile, hemodynamically stable, was sent home on azithromycin prescription and instructed him precaution. Apparently, he and his are both positive and has been providing supportive care for each other. When he arrived to the Emergency Room, the patient was extensively investigated and apparently has had chest x-ray, which showed that the patient has diffuse central predominance interstitial infiltrate. His lab work showed his white cell count 5000 and was basically admitted with COVID-19 pneumonia, acute hypoxic respiratory failure. We did continue his medication, continue with IV antibiotic as well as dexamethasone and he did actually very well. All his symptoms mostly subsided, even his oxygen requirement has improved. He is now actually maintaining his oxygen saturation at 93% on room air; however, on exertion, he did drop his oxygen down to 85% and therefore, a decision was made to discharge him home on 2 liters of oxygen. PHYSICAL EXAMINATION: GENERAL: When I saw him this afternoon, he looked well and was clearly in no apparent respiratory distress. No pallor, jaundice, cyanosis or thyromegaly. No jugular venous distention. No lower limb edema. VITAL SIGNS: His heart rate was 80, blood pressure was 111/67, temperature 98.7, respiratory rate 20, and oxygen saturation was 93% on room air. HEAD, EYES, EARS, NOSE AND THROAT: Showed normocephalic and atraumatic. NECK: Supple. HEART: Showed normal first and second heart sounds. No gallop, rub or murmur. CHEST: Clear to auscultation. No crepitation or rhonchi. ABDOMEN: Distended, soft, nontender. NEUROLOGIC: He is grossly intact. His intake was 1700, no output was recorded. LABORATORY DATA: This morning showed a serum sodium 140, potassium 3.3, chloride 102, bicarbonate 32, anion gap of 6, BUN 18, creatinine 0.8, estimated GFR was 97 mL per minute. His glucose 101, calcium was 8.4. Total bilirubin, AST, ALT, alkaline phosphatase ____. Total protein 6.9, albumin was 2.8. White cell count was 6200, hemoglobin 15, hematocrit 46, MCV 89 and platelet count 212,000. His D-dimer was 1.88. Urinalysis was essentially unremarkable. DISCHARGE MEDICATIONS: He was discharged home to continue on following medications: Cefdinir 300 mg twice a day, Zithromax 250 mg once a day, dexamethasone tapering fashion together with hydrochlorothiazide as well as losartan potassium. FINAL DISCHARGE DIAGNOSES: 1. COVID-19 pneumonia. 2. Acute hypoxic respiratory failure. 3. Hypertension. GUILLAUME FERRARO MD DR: ANJALI/winnie JOB#: [id number] / [id number]
== END 2020-11-28 17:15 | disposition home or self-care (01) | DRG 177 ==
LOC: ER 20:13 → 1 SOUTH 21:13
PROVIDERS: ADMIT Internal Medicine; ATTEND Internal Medicine
DX: U07.1 COVID-19 (principal); J96.01 Acute respiratory failure with hypoxia; J12.82 Pneumonia due to coronavirus disease 2019; I10 Essential (primary) hypertension; Z96.643 Presence of artificial hip joint, bilateral; Z82.49 Family history of ischemic heart disease and other diseases of the circulatory system; Z82.3 Family history of stroke
CPT/HCPCS: 36415; 71045; 80053; 81001; 82550; 83605; 83880; 84484; 85025; 85027; 85379; 87040; 93005; 94618; 96360; 96361; 99283; 99285; J0696; J1100; J1650; J7030

== ENCOUNTER → 2020-12-05 | Outpatient (CLI) | payer MEDICARE ==
[2020-11-28 15:05] VITALS: BP 111/67
[~2020-12-05] MED LIST changes: +AZIT250T PO; +CEFD300C PO; +DEXA4TAB PO; +HYDR25TA10 PO; +LOSA100T14 PO
--- NOTE | 2020-12-05 13:20 | RAD ---
Right lower extremity venous duplex ultrasound study without comparison for right leg pain and swelli ng. TECHNIQUE AND FINDINGS: Real-time grayscale and color and spectral Doppler evaluation of the veins th e right lower extremity is performed. The right common femoral, femoral, and popliteal veins are all patent demonstrating normal compressibility and augmentation. There is normal color flow within the p osterior tibial veins. IMPRESSION: 1. No evidence of DVT. Electronically signed by: Chris Tamayo MD (12/05/2020 1:17 PM) [id number]
== END ==
LOC: US 11:32
PROVIDERS: ATTEND Physician Assistant
DX: R22.41 Localized swelling, mass and lump, right lower limb (principal); M79.89 Other specified soft tissue disorders
CPT/HCPCS: 93971

== ENCOUNTER → 2020-12-07 | Outpatient (CLI) | payer MEDICARE ==
[2020-11-28 15:05] VITALS: BP 111/67
--- NOTE | 2020-12-08 09:03 | RAD ---
US RIGHT LOWER EXTREMITY ARTERIAL DUPLEX EVAL 12/07/2020 1:54 PM INDICATION: Right leg is cold COMPARISON: None available. TECHNIQUE: Sonographic evaluation of the right lower extremity arterial system was performed as an g rayscale component Doppler and spectral waveform analysis. FINDINGS: Triphasic waveforms are identified from the right common femoral artery through the popliteal artery as well as the proximal posterior tibial artery. Distal posterior tibial artery is occluded. Peroneal artery in the mid calf is occluded. Anterior tibial artery and dorsalis pedis artery are not visuali zed. Common femoral artery: 103 cm/s Profunda artery: 95 cm/s Superficial femoral artery, proximal: 105 cm/s Superficial femoral artery, mid: 80 cm/s Superficial femoral artery, distal: 82 cm/s Popliteal artery: 37 cm/s Posterior tibial artery: 71 cm/s Peroneal artery: 18 cm/s IMPRESSION: 1. 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 Anterio r tibial and dorsalis pedis artery are not visualized. Electronically signed by: Leila Brewster MD (12/08/2020 9:00 AM) [id number]
== END ==
LOC: US 13:46
PROVIDERS: ATTEND Physician Assistant
DX: I70.201 Unspecified atherosclerosis of native arteries of extremities, right leg (principal); R20.0 Anesthesia of skin
CPT/HCPCS: 93926